=== PATIENT | female | born 2000 ===

== ENCOUNTER 2022-09-10 00:23 | Inpatient (IN) | payer OTHER ==
[~2022-09-10] VITALS: Ht 170.2 cm; Wt 81.7 kg
[~2022-09-10 00:23] MED LIST: DIVA500EC PO; LEVE500 PO
[2022-09-10 02:34] LABS: Alanine Aminotransfer (ALT/SGP 23 U/L (12-78); Albumin, Blood 3.6 g/dL (3.4-5.0); Albumin/Globulin Ratio 0.9 (0.8-1.8); Alk Phos 53 U/L (50-136); Anion Gap 1 mmol/L (6-16); Aspartate Aminotrans (AST/SGOT 19 U/L (12-37); Bilirubin, Total 0.3 mg/dL (0.1-1.0); Blood Urea Nitrogen 10 mg/dL (8-24); Bun/Creatinine Ratio 16.2 (12.0-20.0); CO2, Blood 29 mmol/L (21-32); Calcium, Blood 9.2 mg/dL (8.5-10.1); Chloride, Blood 108 mmol/L (98-108); Creatinine, Blood 0.62 mg/dL (0.40-1.00); Globulin, Blood 4.2 g/dL (2.2-4.0); Glomerular Filtration Rate 130 (60-); Glucose, Blood 61 mg/dL (70-99); Potassium, Blood 3.8 mmol/L (3.5-5.5); Sodium, Blood 138 mmol/L (136-145); Total Protein, Blood 7.8 g/dL (6.4-8.2); Valproic Acid 32.3 ug/mL (50.0-100.0)
[2022-09-10 06:32] LABS: Albumin, Blood 3.3 g/dL (3.4-5.0); Albumin/Globulin Ratio 0.9 (0.8-1.8); Bilirubin, Total 0.2 mg/dL (0.1-1.0); Bun/Creatinine Ratio 15.8 (12.0-20.0); Calcium, Blood 9.1 mg/dL (8.5-10.1); Creatinine, Blood 0.57 mg/dL (0.40-1.00); Globulin, Blood 3.8 g/dL (2.2-4.0); Magnesium, Blood 2.2 mg/dL (1.6-2.4); Potassium, Blood 4.2 mmol/L (3.5-5.5); Prolactin 15.3 ng/mL; Total Protein, Blood 7.1 g/dL (6.4-8.2)
--- NOTE | 2022-09-10 06:52 | NUR ---
PATIENT ARRIVED TO UNIT FROM ED AT 0525. PATIENT WAS HAVING CONTINUOUS SEIZURES AND A RAPID RESPONSE WAS CALLED AT 0530. PATIENT HAD NO IV ACCESS. IV OBTAINED AND 2MG IV ATIVAN GIVEN. PATIENT TRANSFERED TO ICU
--- NOTE | 2022-09-10 07:05 | NUR ---
ASSUMED CARE OF PT AT 0600 PT IN ACTIVE SEIZURE UPON ARIVAL TO ICU ROOM. DR BLAIR AT BEDSIDE WITH HEAD CT ORDER AND 500 MG KEPPRA IV. PT VERY FEARFUL AND GUARDED WITH TREATMENT. A/O X3 WITH VERY SLOW THINKING PROCESSES. PT SPOUSE AT BEDSIDE. PT CONTINENT OF URINE AND BOWEL WITH OR WITHOUT SEIZURE ACTIVITY. NO C/O PAIN AT THIS TIME. BP AND HR WNL AT THIS TIME. REPORT GIVEN TO AM NURSE AT 0700.
--- NOTE | 2022-09-10 08:00 | NUR ---
Assumed care for pt at 0700. She has not had any seizure activity since arriving to ICU room # 15. Significant other at bedside. Pt on monitor and drowsy.
--- NOTE | 2022-09-10 11:50 | NUR ---
RN accompanied pt to CT for ordered scan.
--- NOTE | 2022-09-10 12:10 | NUR ---
RN returned with pt to ICU # 15. No events occured during scan.
--- NOTE | 2022-09-10 12:25 | NUR ---
Pt had a witnessed x1 minute seizure. 2 mg Ativan IVP was administered. Pt had recently returned from CT w/ RN.
--- NOTE | 2022-09-10 16:00 | NUR ---
Pt's Juan A Shen's cellphone # [phone].
[2022-09-10 17:15] LABS: Source, Urine Voided
--- NOTE | 2022-09-10 17:22 | NUR ---
Pt had another witnessed seizure at 1710, adminstered 2mg ativan IVP. Pt on 2 lpm o2 via NC w/ suction setup at bedside. Seizure activity lasted [address] Tripp.
--- NOTE | 2022-09-10 17:38 | NUR ---
PT HAD APPROX. [address] CALL TO DR RUIZ AND ORDERS RECEIVED FOR ONE TIME DOSE OF ONE GRAM IV DILANTIN.
[2022-09-10 17:48] LABS: Appearance, Urine Hazy (Clear); Bilirubin, Urine Neg (Neg); Blood, Urine Neg (Neg); Color, Urine Yellow (P-Yellow); Glucose Qualitative, Urine 2+ (Neg); Ketones, Urine Neg (Neg); Leukocyte Esterase, Urine 2+ (Neg); Nitrite, Urine Neg (Neg); Protein, Urine 1+ (Neg); Specific Gravity, Urine 1.015 (1.003-1.022); Urobilinogen, Urine NORM (Normal); pH, Urine 6.5 (5.0-8.0)
[2022-09-10 18:10] LABS: U Amphetamine Screen Not Detected; U Barbituate Screen Not Detected; U Benzodiazapine Screen DETECTED; U Buprenorphine Screen Not Detected; U Cannabinoids Screen Not Detected; U Cocaine Screen Not Detected; U Methadone Screen Not Detected; U Methamphetamine Screen Not Detected; U Opiates Screen Not Detected; U Oxycodone Screen Not Detected; U Phencyclidine Screen Not Detected; U Propoxyphene Screen Not Detected
[2022-09-10 18:32] LABS: Bacteria Many /hpf; Mucus Light (0-Heavy); Red Blood Cells, Urine 0-2 /hpf (0-2); Squamous Epithelial Cells Many /hpf (Few)
--- NOTE | 2022-09-10 19:19 | NUR ---
Pt had a head CT and abdomen US performed. Pt had roughly 6 seizures during the shift. First one occuring after the head CT in her room, the others occuring around 1715 and on. Pt had a short, in non-existent, post-ictal phase after each reported seizure. Spoke w/ her mother Nazia who advised pt seizures had begun roughly two years ago, that the pt took Keppra and Depakote but not any other medications for her PTSD or Bipolar Disorder.
--- NOTE | 2022-09-10 20:01 | NUR ---
PT EXHIBITED SEIZURE LIKE ACTIVITY BUT RESPONDED TO A STERNAL RUB, MADE EYE CONTACT AND STATED SHE WANTED TO GO HOME. SHE IS NOT SHOWING ANY SIGNS OF BEING POSTICTAL AND IS CURRENTLY CALLING HER FIANCE ON THE PHONE. NOTIFIED PROVIDER. PT CRYING ALSO STATING SHE WANTS TO LEAVE AND HAS TAKEN HER RECREATIONAL DIRECTOR OFF 4X SINCE MY SHIFT BEGAN. ORDERS GIVEN OK TO REMOVE RECREATIONAL DIRECTOR IF PT CONTINUES TO REMOVE. PT IS ALERT, NORMAL GAZE BUT BEHAVIOR IS AGGRESSIVE AND MALADAPTIVE. SHE IS CRYING AT TIMES AND NOT EASILY REDIRECTABLE. PT HAS BEEN EDUCATED THAT SHE CAN LEAVE AMA IF SOMEONE COMES TO PICK HER UP. SHE IS ARGUMENTATIVE AND NOT REASONABLE AT THIS TIME.
--- NOTE | 2022-09-10 21:11 | NUR ---
PT IS ALERT AND ORIENTED X4, MAKING PHONE CALLS AND TALKING ON THE PHONE AT THIS TIME. SHE CONTINUES TO TAKE OFF MONITORING EQUIPMENT. CHARGE NURSE STATED THAT PT COULD HAVE A SUPPORT PERSON STAY THE NIGHT BUT THEY HAVE NOT ARRIVED.
--- NOTE | 2022-09-10 21:41 | NUR ---
PT HAD A SEIZURE LASTING APPX 2 MINUTES. PROVIDER WAS NOTIFIED. MEDICATIONS GIVEN ORDERED. VSS, AIRWAY CLEAR, PT ABLE TO TALK W/ NO ACUTE DISTRESS AT THIS TIME.
[2022-09-10 22:25] LABS: Bun/Creatinine Ratio 12.2 (12.0-20.0); Calcium, Blood 9.1 mg/dL (8.5-10.1); Creatinine, Blood 0.57 mg/dL (0.40-1.00); Potassium, Blood 3.8 mmol/L (3.5-5.5)
--- NOTE | 2022-09-10 23:45 | NUR ---
PT STATES SHE WANTS TO LEAVA AMA. DISCUESSED THE RISKS OF LEAVING VS THE BENEFITS OF STAYING WITH HER AND HER FIANCE AT BEDSIDE. FIANCE STATED HE WAS ATTEMPTING TO FIND A RIDE HOME FOE THEM. DR DELATORRE NOTIFIED.
--- NOTE | 2022-09-11 00:45 | NUR ---
PT AGAIN STATES SHE WANTS TO LEAVE AMA. PT WAS EDUCATED ON THE RISKS OF LEAVING VS THE BENEFITS OF STAYING IN THE HOSPITAL. PT HAS FIANCE AT BEDSIDE. SHE HAS SIGNED HER AMA PAPERS AND IS WAITING FOR HER RIDE. SHE IS ALERT AND ORIENTED. SHE REFUSED HER PO SEIZURE MEDICATION EARLIER IN THE NIGHT. PT WAS EDUCATED ON THE IMPORTANCE OF BEING COMPLIANT W/MEDICATIONS TO PREVENT SEIZURES. SHE CONTINUED TO REFUSE. SHE HAS BEEN NON COMPLIANT W/WEARING NEEDLE VALVE OPERATOR AND HAVING VITAL SIGNS TAKEN WELL. THERE ARE NO S/S OF ACUTE DISTRESS NOTED AT TIME OF PT SIGNING AMA PAPERS.
--- NOTE | 2022-09-11 03:29 | NUR ---
PT HAD SEIZURE LIKE ACTIVITY BUT SPIT AT ME TWICE AND RESPONDED TO ME VERBALLY. SHE RETURNED TO BASELINE INSTANTLY AND BEGAN PULLING OFF HER MONITORING EQUIPMENT, BEING BELLIGERENT, REFUSING LABS AND TREATMENTS. STEVEN SHANNON CHARGE NURSE IS AT BEDSIDE AT THIS TIME. SHE IS ARGUMENTATIVE AND AGGRESSIVE WITH STAFF.
--- NOTE | 2022-09-11 03:55 | NUR ---
PT PULLED OUT HER IV AND DEMANDED TO LEAVE AMA AGAIN. PT WAS EDUCATED ON THE RISKS OF LEAVING VS THE BENEFITS OF STAYING IN THE HOSPITAL, WHICH SHE HAS BEEN EDUCATED ON MULTIPLE TIMES DURING THIS SHIFT. STEVEN RN, CHARGE NURSE HAS SPOKEN WITH HER MANY TIMES WELL. PT SIGNED AMA PAPERS AND SECURITY ESCORTED HER OUT OF THE ICU.
== END 2022-09-11 03:51 | disposition left against medical advice (07) | DRG 101 ==
LOC: ER 00:23 → ICUW 04:19 → MEDS 04:19 → ICUW 05:58
PROVIDERS: Emergency Medicine; Nurse Practitioner Acute Care; ADMIT Internal Medicine
DX: G40.909 Epilepsy, unspecified, not intractable, without status epilepticus (principal); F43.10 Post-traumatic stress disorder, unspecified; G47.9 Sleep disorder, unspecified; F50.9 Eating disorder, unspecified; R10.30 Lower abdominal pain, unspecified; Z91.14 Patient's other noncompliance with medication regimen; Z59.00 Homelessness unspecified; Z28.21 Immunization not carried out because of patient refusal; Z79.899 Other long term (current) drug therapy
CPT/HCPCS: 36415; 70450; 76700; 80048; 80053; 80164; 80177; 81001; 82550; 82947; 83605; 83735; 84146; 87086; 96365; 96375; 96376; 99285-25; A9270; J1165; J1953; J2060; J7799

== ENCOUNTER 2022-10-24 21:52 | Emergency (ER) | payer OTHER ==
[~2022-10-24] VITALS: Ht 162.6 cm; Wt 85.7 kg
[2022-10-24 22:47] LABS: Source, Urine Clean Catch
[2022-10-24 22:51] LABS: Appearance, Urine Clear (Clear); Bilirubin, Urine Neg (Neg); Blood, Urine Neg (Neg); Color, Urine Yellow (P-Yellow); Glucose Qualitative, Urine Neg (Neg); Ketones, Urine Neg (Neg); Leukocyte Esterase, Urine Neg (Neg); Nitrite, Urine Neg (Neg); Protein, Urine Neg (Neg); Specific Gravity, Urine 1.025 (1.003-1.022); Urobilinogen, Urine NORM (Normal)
[2022-10-24 23:58] LABS: BASOPHILS ABSOLUTE AUTO 0.04 K/mm3 (0.00-0.23); BASOPHILS PERCENT AUTO 1 % (0-2); EOSINOPHILS ABSOLUTE AUTO 0.09 K/mm3 (0.00-0.68); EOSINOPHILS PERCENT AUTO 1 % (0-6); Hematocrit 35.8 % (33.0-51.0); Hemoglobin 12.2 g/dL (11.5-16.0); IMMATURE GRAN ABSOLUTE AUTO 0.02 K/mm3 (0.00-0.10); IMMATURE GRAN PERCENT AUTO 0 % (0-1); LYMPHOCYTES ABSOLUTE AUTO 1.98 K/mm3 (0.84-5.20); LYMPHOCYTES PERCENT AUTO 27 % (21-46); MONOCYTES ABSOLUTE AUTO 0.46 K/mm3 (0.16-1.47); MONOCYTES PERCENT AUTO 6 % (4-13); Mean Corpuscular HGB 29.7 pg (26.0-34.0); Mean Corpuscular HGB Conc 34.1 g/dL (31.5-36.5); Mean Corpuscular Volume 87 fL (80-100); Mean Platelet Volume 8.2 fL (9.1-12.4); NEUTROPHILS ABSOLUTE AUTO 4.79 K/mm3 (1.96-9.15); NEUTROPHILS PERCENT AUTO 65 % (41-73); Platelet Count 438 K/mm3 (150-400); RDW Coefficient Variation 12.5 % (11.7-14.2); RDW Standard Deviation 40.2 fL (35.1-46.3); Red Blood Cell Count 4.11 M/mm3 (3.80-5.20); White Blood Cell Count 7.38 K/mm3 (4.00-11.30)
[2022-10-25 00:17] LABS: Alanine Aminotransfer (ALT/SGP 14 U/L (12-78); Albumin, Blood 3.3 g/dL (3.4-5.0); Albumin/Globulin Ratio 0.8 (0.8-1.8); Alk Phos 64 U/L (50-136); Anion Gap 4 mmol/L (6-16); Aspartate Aminotrans (AST/SGOT 9 U/L (12-37); Beta HCG, Quantitative, Serum 343 mIU/mL (0-3); Bilirubin, Total 0.2 mg/dL (0.1-1.0); Blood Urea Nitrogen 11 mg/dL (8-24); Bun/Creatinine Ratio 22.5 (12.0-20.0); CO2, Blood 25 mmol/L (21-32); Calcium, Blood 9.1 mg/dL (8.5-10.1); Chloride, Blood 109 mmol/L (98-108); Creatinine, Blood 0.49 mg/dL (0.40-1.00); Globulin, Blood 4.2 g/dL (2.2-4.0); Glomerular Filtration Rate 137 (60-); Glucose, Blood 90 mg/dL (70-99); Potassium, Blood 3.8 mmol/L (3.5-5.5); Sodium, Blood 138 mmol/L (136-145); Total Protein, Blood 7.5 g/dL (6.4-8.2); Valproic Acid 5.7 ug/mL (50.0-100.0)
== END 2022-10-25 01:03 | disposition home or self-care (01) ==
LOC: ER 21:52
PROVIDERS: Emergency Medicine; Student in an Organized Health Care Education/Training Program
DX: O99.891 Other specified diseases and conditions complicating pregnancy (principal); R10.2 Pelvic and perineal pain; Z3A.00 Weeks of gestation of pregnancy not specified; Z79.899 Other long term (current) drug therapy
CPT/HCPCS: 36415; 76801; 76817; 80053; 80164; 81003; 81025; 84702; 85025; 99284-25; A9270

== ENCOUNTER 2022-10-27 21:08 | Emergency (ER) | payer MEDICAID ==
[~2022-10-27] VITALS: Ht 160 cm; Wt 63.5 kg
== END 2022-10-27 23:05 | disposition home or self-care (01) ==
LOC: ER 21:08
DX: O99.891 Other specified diseases and conditions complicating pregnancy (principal); R10.84 Generalized abdominal pain; Z3A.00 Weeks of gestation of pregnancy not specified
CPT/HCPCS: 99284-25

== ENCOUNTER 2022-10-31 19:15 | Emergency (ER) | payer MEDICAID, OTHER ==
[~2022-10-31] VITALS: Ht 162.6 cm; Wt 95.2 kg
[2022-10-31 21:00] LABS: Source, Urine Clean Catch
[2022-10-31 21:01] LABS: BASOPHILS ABSOLUTE AUTO 0.04 K/mm3 (0.00-0.23); BASOPHILS PERCENT AUTO 1 % (0-2); EOSINOPHILS ABSOLUTE AUTO 0.06 K/mm3 (0.00-0.68); EOSINOPHILS PERCENT AUTO 1 % (0-6); Hematocrit 36.1 % (33.0-51.0); Hemoglobin 12.2 g/dL (11.5-16.0); IMMATURE GRAN ABSOLUTE AUTO 0.02 K/mm3 (0.00-0.10); IMMATURE GRAN PERCENT AUTO 0 % (0-1); LYMPHOCYTES ABSOLUTE AUTO 1.91 K/mm3 (0.84-5.20); LYMPHOCYTES PERCENT AUTO 24 % (21-46); MONOCYTES ABSOLUTE AUTO 0.43 K/mm3 (0.16-1.47); MONOCYTES PERCENT AUTO 5 % (4-13); Mean Corpuscular HGB 29.8 pg (26.0-34.0); Mean Corpuscular HGB Conc 33.8 g/dL (31.5-36.5); Mean Corpuscular Volume 88 fL (80-100); Mean Platelet Volume 8.5 fL (9.1-12.4); NEUTROPHILS ABSOLUTE AUTO 5.68 K/mm3 (1.96-9.15); NEUTROPHILS PERCENT AUTO 70 % (41-73); Platelet Count 420 K/mm3 (150-400); RDW Coefficient Variation 12.6 % (11.7-14.2); RDW Standard Deviation 40.7 fL (35.1-46.3); Red Blood Cell Count 4.09 M/mm3 (3.80-5.20); White Blood Cell Count 8.14 K/mm3 (4.00-11.30)
[2022-10-31 21:07] LABS: Bilirubin, Urine Neg (Neg); Blood, Urine Neg (Neg); Glucose Qualitative, Urine Neg (Neg); Ketones, Urine Neg (Neg); Leukocyte Esterase, Urine 1+ (Neg); Nitrite, Urine Neg (Neg); Protein, Urine Neg (Neg); Urobilinogen, Urine NORM (Normal)
[2022-10-31 21:15] LABS: Appearance, Urine Hazy (Clear); Color, Urine Yellow (P-Yellow)
[2022-10-31 21:16] LABS: Bacteria Many /hpf; Red Blood Cells, Urine 0-2 /hpf (0-2); Squamous Epithelial Cells Many /hpf (Few)
[2022-10-31 21:38] LABS: Albumin, Blood 3.3 g/dL (3.4-5.0); Albumin/Globulin Ratio 0.8 (0.8-1.8); Bilirubin, Total 0.2 mg/dL (0.1-1.0); Bun/Creatinine Ratio 16.6 (12.0-20.0); Creatinine, Blood 0.48 mg/dL (0.40-1.00); Total Protein, Blood 7.3 g/dL (6.4-8.2)
== END 2022-10-31 23:15 | disposition home or self-care (01) ==
LOC: ER 19:15
PROVIDERS: Student in an Organized Health Care Education/Training Program
DX: O99.891 Other specified diseases and conditions complicating pregnancy (principal); R10.32 Left lower quadrant pain; R10.31 Right lower quadrant pain; Z3A.01 Less than 8 weeks gestation of pregnancy
CPT/HCPCS: 36415; 76801; 76817; 80053; 81001; 84702; 85025; 87086; 99284-25